=== PATIENT | male | born 1985 | race Caucasian/White ===

== ENCOUNTER 2016-12-31 17:38 | Emergency (ER) | payer SELFPAY ==
[2016-12-31 18:32] VITALS: BMI 35.9
[2016-12-31 18:35] VITALS: BP 107/75; PULSE 64; RESP 18; TEMP 97.6; O2SAT 96
--- NOTE | 2016-12-31 19:28 | ED PDOC ---
Arrival/HPI - General Chief Complaint: Suture/Staple Removal Time Seen by Provider: 12/31/16 17:53 Historian: Patient - History of Present Illness Narrative History of Present Illness (Text): 12/31/16 19:26 31 y/o male, here for the wound check and suture check s/p sutured about 8 days ago. Pt. stated that the wound healing well and dry, no fever or chills, no headache or night sweat, no dizziness, no numbness or tingling, no palpitation, no other medical or psychological complaints. Past Medical History - Provider Review Nursing Documentation Reviewed: Yes - Infectious Disease Hx of Infectious Diseases: None - Tetanus Immunization Tetanus Immunization: Unknown - Psychiatric Hx Depression: No Hx Emotional Abuse: No Hx Physical Abuse: No Hx Substance Use: Yes (weed) - Anesthesia Hx Anesthesia: No - Suicidal Assessment Feels Threatened In Home Enviroment: No Family/Social History - Physician Review Nursing Documentation Reviewed: Yes Family/Social History: Unknown Family HX Smoking Status: Never Smoked Hx Alcohol Use: No Hx Substance Use: Yes (weed) Hx Substance Use Treatment: No Allergies/Home Meds Allergies/Adverse Reactions: Allergies No Known Allergies Allergy (Verified 12/31/16 18:32) Review of Systems - Review of Systems Constitutional: absent: Fatigue, Fevers Eyes: absent: Vision Changes ENT: absent: Hearing Changes Respiratory: absent: SOB, Cough Cardiovascular: absent: Chest Pain Gastrointestinal: absent: Abdominal Pain, Nausea, Vomiting Musculoskeletal: absent: Arthralgias, Back Pain Skin: Other (suture wound). absent: Rash, Pruritis, Skin Lesions, Abscess, Ulcer Neurological: absent: Headache, Dizziness Physical Exam Vital Signs Reviewed: Yes Vital Signs Temp Pulse Resp BP Pulse Ox 12/31/16 18:34 97.6 F 64 18 107/75 96 Temperature: Afebrile Blood Pressure: Normal Pulse: Regular Respiratory Rate: Normal Appearance: Positive for: Well-Appearing, Non-Toxic, Comfortable Pain Distress: Mild Mental Status: Positive for: Alert and Oriented X 3 - Systems Exam Head: Present: Atraumatic, Normocephalic Pupils: Present: PERRL Extroacular Muscles: Present: EOMI Conjunctiva: Present: Normal Mouth: Present: Moist Mucous Membranes Neck: Present: Normal Range of Motion Respiratory/Chest: Present: Clear to Auscultation, Good Air Exchange. No: Respiratory Distress, Accessory Muscle Use Cardiovascular: Present: Regular Rate and Rhythm, Normal S1, S2. No: Murmurs Abdomen: Present: Normal Bowel Sounds. No: Tenderness, Distention, Peritoneal Signs Back: Present: Normal Inspection Upper Extremity: Present: Normal Inspection, Other (Rt. hand: visible approx. 3cm wound with prolene sutures with mild erythematous surrounding but no obvious ulcers or streaking, FROM without limitation, sensation intact, motor 5/ 5, +radial pulse, capillary refill< 2 seconds, neurovascular intact. ). No: Cyanosis, Edema Lower Extremity: Present: Normal Inspection. No: Edema Neurological: Present: GCS=15, CN II-XII Intact, Speech Normal Skin: Present: Warm, Dry, Normal Color. No: Rashes Psychiatric: Present: Alert, Oriented x 3, Normal Insight, Normal Concentration Medical Decision Making ED Course and Treatment: 12/31/16 19:28 -wound healing dry and clean, there is mild erythematous which I will put him on keflex as he is not on any antibiotic, Wound is not completely healed, will wait additional 2-3 days as I explained to the patient. -Discharge home with keflex, wait additional 2-3 days for the suture removal as the suture is on the dorsum aspect of the hand, avoid strenuous exercise or activity, follow up with your own pmd and hand specialist within 2 days, return to the ER for any new or worsening signs or symptoms. - PA / CHRONOMETER REPAIRER / Resident Statement / has reviewed & agrees with the documentation as recorded. Disposition/Present on Arrival - Present on Arrival Any Indicators Present on Arrival: No History of DVT/PE: No History of Uncontrolled Diabetes: No Urinary Catheter: No History of Decub. Ulcer: No History Surgical Site Infection Following: None - Disposition Have Diagnosis and Disposition been Completed?: Yes Diagnosis: Suture check, Visit for wound check Disposition: HOME/ ROUTINE Disposition Time: 19:31 Patient Plan: Discharge Condition: GOOD Additional Instructions: -Discharge home with keflex, wait additional 2-3 days for the suture removal as the suture is on the dorsum aspect of the hand, avoid strenuous exercise or activity, follow up with your own pmd and hand specialist within 2 days, return to the ER for any new or worsening signs or symptoms. Prescriptions: Cephalexin [cephalexin] 500 mg PO TID #15 cap Referrals: Gonzales Darnell MD [Staff Provider] - Follow up with primary Forms: WORK NOTE
== END 2016-12-31 19:38 | disposition home or self-care (01) ==
LOC: ED 17:38
DX: Z51.89 Encounter for other specified aftercare (principal)

== ENCOUNTER 2017-01-07 22:21 | Emergency (ER) | payer SELFPAY ==
[2017-01-07 22:22] VITALS: BMI 35.9
[2017-01-07 22:49] VITALS: BP 131/80; PULSE 54; RESP 16; TEMP 98.6; O2SAT 98
--- NOTE | 2017-01-07 23:04 | ED PDOC ---
Arrival/HPI - General Historian: Patient <Sudeep Anderson - Last Filed: 01/07/17 22:54> <Kin Rocha - Last Filed: 01/07/17 23:21> - General Chief Complaint: Suture/Staple Removal Time Seen by Provider: 01/07/17 22:53 - History of Present Illness Narrative History of Present Illness (Text): 01/07/17 22:54 31 y/o male, here for the suture removal s/p sutured about 11 days ago. Pt. stated that it healing well and dry, no fever or chills, no night sweat, no difficulty moving the rt. hand and 5 digits, no other medical or psychological complaints. (Sudeep Anderson) Past Medical History - Provider Review Nursing Documentation Reviewed: Yes - Infectious Disease Hx of Infectious Diseases: None - Tetanus Immunization Tetanus Immunization: Unknown - Psychiatric Hx Depression: No Hx Emotional Abuse: No Hx Physical Abuse: No Hx Substance Use: Yes (weed) - Anesthesia Hx Anesthesia: No - Suicidal Assessment Feels Threatened In Home Enviroment: No <Sudeep Anderson - Last Filed: 01/07/17 22:54> Family/Social History - Physician Review Nursing Documentation Reviewed: Yes Family/Social History: Unknown Family HX Smoking Status: Never Smoked Hx Alcohol Use: No Hx Substance Use: Yes (weed) Hx Substance Use Treatment: No <Sudeep Anderson - Last Filed: 01/07/17 22:54> Allergies/Home Meds <Sudeep Anderson - Last Filed: 01/07/17 22:54> <Kin Rocha - Last Filed: 01/07/17 23:21> Allergies/Adverse Reactions: Allergies No Known Allergies Allergy (Verified 01/07/17 22:52) Review of Systems - Review of Systems Constitutional: absent: Fatigue, Fevers Eyes: absent: Vision Changes ENT: absent: Hearing Changes Respiratory: absent: SOB, Cough Cardiovascular: absent: Chest Pain Gastrointestinal: absent: Abdominal Pain, Nausea, Vomiting Skin: Laceration (rt. hand laceration wound) Neurological: absent: Headache, Dizziness <Sudeep Anderson - Last Filed: 01/07/17 22:54> Physical Exam Vital Signs Reviewed: Yes Temperature: Afebrile Blood Pressure: Normal Pulse: Bradycardic Respiratory Rate: Normal Appearance: Positive for: Well-Appearing, Non-Toxic, Comfortable Pain Distress: None Mental Status: Positive for: Alert and Oriented X 3 - Systems Exam Head: Present: Atraumatic, Normocephalic Pupils: Present: PERRL Extroacular Muscles: Present: EOMI Conjunctiva: Present: Normal Mouth: Present: Moist Mucous Membranes Neck: Present: Normal Range of Motion Respiratory/Chest: Present: Clear to Auscultation, Good Air Exchange. No: Respiratory Distress, Accessory Muscle Use Cardiovascular: Present: Regular Rate and Rhythm, Normal S1, S2. No: Murmurs Abdomen: Present: Normal Bowel Sounds. No: Tenderness, Distention, Peritoneal Signs Back: Present: Normal Inspection Upper Extremity: Present: Normal Inspection, Other (Rt. hand dorsum 1st metacarla region visible 6 prolene sutures with scar and healing well/dry, FROM without limitation, sensation intact, motor 5/5, +radial pulse, capillary refill < 2 seconds, neurovascular intact. ). No: Cyanosis, Edema Lower Extremity: Present: Normal Inspection. No: Edema Neurological: Present: GCS=15, Speech Normal, Motor Func Grossly Intact, Gait Normal, Memory Normal Skin: Present: Warm, Dry, Normal Color. No: Rashes Psychiatric: Present: Alert, Oriented x 3, Normal Insight, Normal Concentration <Sudeep Anderson - Last Filed: 01/07/17 22:54> Vital Signs Temp Pulse Resp BP Pulse Ox 01/07/17 22:35 98.6 F 54 L 16 131/80 98 Medical Decision Making <Sudeep Anderson - Last Filed: 01/07/17 22:54> <Kin Rocha - Last Filed: 01/07/17 23:21> ED Course and Treatment: 01/07/17 23:05 -6 sutures removed with success, no visible remaining sutures or roman, wound healing well and dry. -Discharge home with education on follow up with your own pmd and hand specialist within 2 days, return to the ER for any new or worsening signs or symptoms. (Sudeep Anderson) - PA / ELEVATOR REPAIRER HELPER / Resident Statement BUDDY has reviewed & agrees with the documentation as recorded. <Sudeep Anderson - Last Filed: 01/07/17 22:54> - PA / ELEVATOR REPAIRER HELPER / Resident Statement BUDDY has reviewed & agrees with the documentation as recorded. <Kin Rocha - Last Filed: 01/07/17 23:21> Disposition/Present on Arrival - Present on Arrival Any Indicators Present on Arrival: No History of DVT/PE: No History of Uncontrolled Diabetes: No Urinary Catheter: No History of Decub. Ulcer: No History Surgical Site Infection Following: None - Disposition Have Diagnosis and Disposition been Completed?: Yes Disposition Time: 23:06 Patient Plan: Discharge <Sudeep Anderson - Last Filed: 01/07/17 22:54> <Kin Rocha - Last Filed: 01/07/17 23:21> - Disposition Diagnosis: Encounter for removal of sutures Disposition: HOME/ ROUTINE Condition: GOOD Additional Instructions: -Discharge home with education on follow up with your own pmd and hand specialist within 2 days, return to the ER for any new or worsening signs or symptoms. Referrals: PCP,NO [Primary Care Provider] - [facility] up with primary [facility] [place] - Follow up with primary Des Casillas III, MD [Medical Doctor] - Follow up with primary Forms: WORK NOTE
== END 2017-01-07 23:19 | disposition home or self-care (01) ==
LOC: ED 22:21
DX: Z48.02 Encounter for removal of sutures (principal)